=== PATIENT | female | born 1980 | race Caucasian/White ===

== ENCOUNTER 2024-12-14 06:23 | Day surgery (SDC) | payer BC, SELFPAY | END 2024-12-14 10:55 | disposition home or self-care (01) | LOC: GI 06:23 | PROVIDERS: ATTENDING PHYSICIAN Internal Medicine Gastroenterology | DX: Z12.11 Encounter for screening for malignant neoplasm of colon (principal); R13.10 Dysphagia, unspecified; K44.9 Diaphragmatic hernia without obstruction or gangrene; K22.89 Other specified disease of esophagus; K31.89 Other diseases of stomach and duodenum; K21.9 Gastro-esophageal reflux disease without esophagitis; D12.2 Benign neoplasm of ascending colon; K63.5 Polyp of colon; K22.70 Barrett's esophagus without dysplasia; Z83.710 Family history of adenomatous and serrated polyps | CPT/HCPCS: 45385; 45380; 43239; 88305; 88342 ==